=== PATIENT | male | born 1985 | race Two or more races ===

== ENCOUNTER 2018-10-05 18:09 | Emergency (ER) | payer SELFPAY ==
[~2018-10-05] VITALS: Ht 180.3 cm; Wt 115.2 kg
[2018-10-05 20:57] VITALS: BP 120/81
[2018-10-05] MEDS ORDERED: DexAMETHasone SOD PHOS 10MG/1ML VIAL INJ IM ONE (21:15)
[2018-10-05] MEDS ORDERED: cefTRIAXone SOD 1,000 MG VL IM ONE (21:15)
[2018-10-05] MEDS ORDERED: ACETAMINOPHEN/CODEINE#3 (300/30mg) TAB PO ONE (21:15)
== END 2018-10-05 22:15 | disposition home or self-care (01) ==
LOC: ER 18:13
DX: H66.93 Otitis media, unspecified, bilateral (principal); J06.9 Acute upper respiratory infection, unspecified
CPT/HCPCS: 96372; 99283; J0696; J1100

== ENCOUNTER 2024-05-06 10:28 | Emergency (ER) | payer MEDICAID ==
[~2024-05-06] VITALS: Ht 180.3 cm; Wt 115.9 kg
[2024-05-06 12:09] VITALS: TEMP 97.8
[2024-05-06] MEDS: LORazepam 0.5 MG TAB PO ONE (12:09)
[2024-05-06] MEDS: cloNIDine HCL 0.1 MG TAB PO ONE (12:43)
[2024-05-06 13:28] VITALS: PULSE 89; RESP 16; O2SAT 96
[2024-05-06] MEDS ORDERED: CLIN1CAP70 PO (13:28)
[2024-05-06] MEDS ORDERED: AMOX500C2 PO (13:28)
[2024-05-06 13:46] VITALS: BP 132/101
== END 2024-05-06 14:09 | disposition home or self-care (01) ==
LOC: ER 10:28
DX: I10 Essential (primary) hypertension (principal); H00.033 Abscess of eyelid right eye, unspecified eyelid; F17.210 Nicotine dependence, cigarettes, uncomplicated